=== PATIENT | male | born 1985 | race African-American/Black ===

== ENCOUNTER 2018-04-12 11:36 | Emergency (ER) | payer SELFPAY ==
[2018-04-12] MEDS ORDERED: METOCLOPRAMIDE HCL ORAL SOLN 10 MG/10 ML UDCUP PO ONE (12:46)
--- NOTE | 2018-04-12 12:49 | ER Document Report ---
ED Medical Screen (RME) - General Chief Complaint: Vomiting Stated Complaint: VOMITING Time Seen by Provider: 04/12/18 12:42 TRAVEL OUTSIDE OF THE [place] IN LAST 30 DAYS: No - HPI Patient complains to provider of: emesis Onset: Other - 33-year-old otherwise healthy gentleman the presents for eval of recurrent nausea and vomiting. Started with an episode after having eaten [employer] 3 nights prior, had 2 episodes of emesis that night, one episode last night , as a result he is decided to stop eating because he is concerned that he is going to throw up. He notes that before he gets sick he does have a low level headache. Denies any fevers or chills, abdominal pain, dysuria or diarrhea he does endorse constipation is notes that he has not had a bowel movement in the last 4-5 days. He is never had anything like this in the past, nothing is seem to make it any better nothing is seem to make it any worse. - Related Data Allergies/Adverse Reactions: No Known Allergies Allergy (Verified 04/12/18 12:41) Past Medical History - General Information source: Patient - Social History Chew tobacco use (# tins/day): No Frequency of alcohol use: None Drug Abuse: Marijuana Pulmonary Medical History: Reports: Hx Asthma Renal/ Medical History: Denies: Hx Peritoneal Dialysis - Immunizations Hx Diphtheria, Pertussis, Tetanus Vaccination: Yes Review of Systems - Review of Systems -: Yes All other systems reviewed and negative Physical Exam - Vital signs Vitals: Temp Pulse Resp BP Pulse Ox 98.6 F 67 18 117/69 97 04/12/18 11:53 04/12/18 11:53 04/12/18 11:53 04/12/18 11:53 04/12/18 11:53 - General General appearance: Appears well In distress: None - HEENT Head: Normocephalic Eyes: Normal Conjunctiva: Normal Cornea: Normal Extraocular movements intact: Yes Eyelashes: Normal Pupils: PERRL - Respiratory Respiratory status: No respiratory distress Chest status: Nontender Breath sounds: Normal Chest palpation: Normal - Cardiovascular Rhythm: Regular Heart sounds: Normal auscultation Murmur: No - Abdominal Inspection: Normal Distension: No distension Tenderness: Nontender Organomegaly: No organomegaly - Back Back: Normal - Extremities General upper extremity: Normal inspection, Nontender, Normal ROM, Normal strength General lower extremity: Normal inspection, Nontender, Normal ROM, Normal strength - Neurological Neuro grossly intact: Yes Cognition: Normal Orientation: AAOx4 [place] Coma Scale Eye Opening: Spontaneous [place] Coma Scale Verbal: Oriented [place] Coma Scale Motor: Obeys Commands [place] Coma Scale Total: 15 Speech: Normal Cranial nerves: Normal Motor strength normal: LUE, RUE, LLE, RLE - Psychological Associated symptoms: Normal affect Course - Re-evaluation Re-evalutation: 04/12/18 13:02 This is a well-appearing 33-year-old man with a benign abdominal examination. No secondary signs of infection at this time. He has been having recurrent episodes of vomiting and nausea. Denies any fevers or chills, does endorse a low-grade headache without any neck stiffness. We will plan for patient undergo treatment with Reglan symptom reassessment. Of note is that this patient's also been constipated. 04/12/18 14:29 Following administration of antiemetic patient was able to tolerate p.o., he has no abdominal pain, is well-appearing, his abdominal examination remained benign. We will plan for discharge with a bowel regimen as well as treatment of his nausea. Patient is in agreement with this at this time, we did cover important return precautions. He verbalized agreement. - Vital Signs Vital signs: Temp Pulse Resp BP Pulse Ox 98.6 F 67 18 117/69 97 04/12/18 11:53 04/12/18 11:53 04/12/18 11:53 04/12/18 11:53 04/12/18 11:53 Doctor's Discharge - Discharge Clinical Impression: Constipation Qualifiers: Constipation type: unspecified constipation type Qualified Code(s): K59.00 - Constipation, unspecified Vomiting Qualifiers: Vomiting type: unspecified Vomiting Intractability: non-intractable Nausea presence: with nausea Qualified Code(s): R11.2 - Nausea with vomiting, unspecified Disposition: HOME, SELF-CARE Instructions: Antinausea Medication ([facility]) Additional Instructions: Your seen today for your vomiting as well as constipation. You were given a prescription for medicine to help with your vomiting. Use the medication as needed for your vomiting. Also use the other medication prescribed to you for your constipation. Take it such that you are having one very soft bowel movement at least every day. Return for worsening fevers or chills, abdominal pain, cramping or other symptoms. Prescriptions: Metoclopramide HCl [Reglan 10 mg Tablet] 10 mg PO BID #40 tablet Polyethylene Glycol 3350 [Miralax Powder 17 gm/Packet] 17 gm PO BID #40 powd.pack Forms: Return to Work
[2018-04-12 14:30] VITALS: BP 115/72
== END 2018-04-12 14:33 | disposition home or self-care (01) ==
LOC: ER 11:36
DX: K59.00 Constipation, unspecified (principal); R11.2 Nausea with vomiting, unspecified
CPT/HCPCS: 99283

== ENCOUNTER 2019-04-10 18:48 | Observation (INO) | payer SELFPAY ==
[2019-04-10] MEDS ORDERED: IPRATROPIUM/ALBUTEROL 0.5-2.5 MG/3 ML AMPUL NEB ONE (19:50)
--- NOTE | 2019-04-10 19:52 | RADIOLOGY REPORT (SQ) ---
EXAM DESCRIPTION: CHEST SINGLE VIEW COMPLETED DATE/TIME: 04/10/2019 7:44 pm REASON FOR STUDY: SOB COMPARISON: None. EXAM PARAMETERS: NUMBER OF VIEWS: One view. TECHNIQUE: Single frontal radiographic view of the chest acquired. RADIATION DOSE: NA LIMITATIONS: None. FINDINGS: LUNGS AND PLEURA: No opacities, masses or pneumothorax. No pleural effusion. MEDIASTINUM AND HILAR STRUCTURES: No masses. Contour normal. HEART AND VASCULAR STRUCTURES: Heart normal in size. Normal vasculature. BONES: No acute findings. HARDWARE: None in the chest. OTHER: No other significant finding. IMPRESSION: NO ACUTE RADIOGRAPHIC FINDING IN THE CHEST. TECHNICAL DOCUMENTATION: JOB ID: [id number] [employer]- All Rights Reserved Reading location - IP/workstation name: [email or web address]
[2019-04-10 19:54] LABS: HEMATOCRIT 45.4 % (37.9-51.0); HEMOGLOBIN 15.2 g/dL (13.5-17.0); MEAN CORPUSCULAR HEMOGLOBIN 29.9 pg (27.0-33.4); MEAN CORPUSCULAR HGB CONC 33.6 g/dL (32.0-36.0); MEAN CORPUSCULAR VOLUME 89 fl (80-97); PLATELET COUNT 160 10^3/uL (150-450); RED BLOOD COUNT 5.09 10^6/uL (4.35-5.55); WHITE BLOOD COUNT 10.4 10^3/uL (4.0-10.5)
--- NOTE | 2019-04-10 19:54 | ER Document Report ---
ED General - General Chief Complaint: Shortness Of Breath Stated Complaint: SHORTNESS OF BREATH Time Seen by Provider: 04/10/19 19:25 Notes: 34-year-old male with a history of asthma presents emergency department complaining of worsening shortness of breath for the past 2 days. Patient denies any history of intubation, has been out of medications for approximately 2 years. States he has had a productive cough with rhinorrhea, sore throat and shortness of breath for the past 2 days. Denies any fevers. Patient was brought in by EMS, found to be hypoxic with a pulse ox of 89 to 90% on room air, they placed him on 3 L which brought him up to 95%, they gave him 2 albuterol breathing treatments, 2 g of mag sulfate and 125 mg of Solu-Medrol and brought him here. Patient states he is feeling a little bit better but not yet well. TRAVEL OUTSIDE OF THE [place] IN LAST 30 DAYS: No - Related Data Allergies/Adverse Reactions: No Known Allergies Allergy (Verified 04/12/18 12:41) Past Medical History - General Information source: Patient - Social History Smoking Status: Current Every Day Smoker Frequency of alcohol use: None Drug Abuse: None Family History: Reviewed & Not Pertinent Patient has suicidal ideation: No Patient has homicidal ideation: No Pulmonary Medical History: Reports: Hx Asthma Renal/ Medical History: Denies: Hx Peritoneal Dialysis - Immunizations Hx Diphtheria, Pertussis, Tetanus Vaccination: Yes Review of Systems - Review of Systems Constitutional: No symptoms reported EENT: See HPI Cardiovascular: No symptoms reported Respiratory: See HPI -: Yes All other systems reviewed and negative Physical Exam - Vital signs Vitals: Pulse Ox 91 L 04/10/19 19:05 Interpretation: Hypoxic - Notes Notes: GENERAL: Alert, interacts well. Appears short of breath. HEAD: Normocephalic, atraumatic EYES: Pupils equal, round and reactive to light, extraocular movements intact. ENT: Oral mucosa moist, tongue midline. Clear rhinorrhea, turbinate edema, tympanic membranes intact without any injection, some postnasal drip. NECK: Full range of motion, supple, trachea midline. LUNGS: Diffuse inspiratory rhonchi and expiratory wheezing, no rales or rhonchi, hypoxic on room air, 92% on 4 L, 91% while talking, speaks in 5-6 word sentences, tachypnea, appears short of breath. HEART: Regular rate and rhythm, no murmurs, gallops, rubs. ABDOMEN: Soft, nontender, nondistended, bowel sounds present in all 4 quadrants. EXTREMITIES: Moves all 4 extremities spontaneously, no edema, radial and dorsalis pedis pulses 2/4 bilaterally. No cyanosis. NEUROLOGICAL: Alert and oriented x3, normal speech. PSYCH: Normal mood, normal affect. SKIN: Warm, Dry, normal turgor, no rashes or lesions noted. Course - Re-evaluation Re-evalutation: 04/10/19 22:49 CBC unremarkable, CMP unremarkable only slightly elevated glucose at 126, serial blood gas was ordered and it appears to be accidentally a venous sample but there is no elevated CO2 on this ABG, chest x-ray shows no acute process, urinalysis shows small blood and trace ketones but no signs of infection. EKG is nonischemic. EMS gave the patient 2 breathing treatments, 125 of Solu-Medrol IV and 2 g of mag IV, on arrival he was still quite short of breath however after several more breathing treatments here the patient's status has significantly improved although he is still requiring 4 L via nasal cannula to maintain oxygen saturation at 92%. There is persistent wheezing in the lower lobes but no more wheezing in the upper lobes, patient looks more comfortable, is no longer using any accessory muscles of respiration and is no longer tachypneic. Patient has no risk factors for pulmonary embolism. Patient admits to [facility]. Discussed with Dr. Piedra who agrees to admit the patient to his service on the telemetry care unit. - Vital Signs Vital signs: Temp Pulse Resp BP Pulse Ox 18 109/70 94 04/10/19 22:01 04/10/19 22:00 04/10/19 22:01 - Laboratory Result Diagrams: 04/10/19 19:34 04/10/19 19:34 Laboratory results interpreted by me: 04/10/19 04/10/19 04/10/19 19:34 19:34 20:06 Seg Neuts % (Manual) 86 H Band Neutrophils % 1 L Lymphocytes % (Manual) 5 L Abs Neuts (Manual) 9.0 H ABG pO2 43.8 L ABG HCO3 27.1 H ABG Total CO2 28.4 H ABG O2 Saturation 80.7 L Glucose 126 H Urine Ketones Urine Blood Urine Urobilinogen 04/10/19 20:33 Seg Neuts % (Manual) Band Neutrophils % Lymphocytes % (Manual) Abs Neuts (Manual) ABG pO2 ABG HCO3 ABG Total CO2 ABG O2 Saturation Glucose Urine Ketones 20 H Urine Blood SMALL H Urine Urobilinogen 4.0 H - EKG Interpretation by Me Additional EKG results interpreted by me: 04/10/19 19:54 EKG shows sinus tachycardia at a rate of 100, right atrial enlargement, no ST segment elevations, trace depressions in lead III and aVF, no T wave inversions per my interpretation. Critical Care Note - Critical Care Note Total time excluding time spent on procedures (mins): 45 Discharge - Discharge Clinical Impression: Acute respiratory failure with hypoxia Acute asthma exacerbation Qualifiers: Asthma severity: moderate Asthma persistence: persistent Qualified Code(s): J45.41 - Moderate persistent asthma with (acute) exacerbation Condition: Fair Disposition: ADMITTED INPATIENT Admitting Provider: Tadeo (Hospitalist) Unit Admitted: Telemetry
[2019-04-10 20:09] LABS: ALBUMIN 4.3 g/dL (3.5-5.0); ALKALINE PHOSPHATASE 100 U/L (38-126); ANION GAP 9 (5-19); ASPARTATE AMINO TRANSFERASE 26 U/L (17-59); BILIRUBIN,DIRECT 0.2 mg/dL (0.0-0.4); BILIRUBIN,TOTAL 0.6 mg/dL (0.2-1.3); BLOOD UREA NITROGEN 9 mg/dL (7-20); CALCIUM 8.9 mg/dL (8.4-10.2); CARBON DIOXIDE 25 mmol/L (22-30); CHLORIDE 104 mmol/L (98-107); GLUCOSE 126 mg/dL (75-110); POTASSIUM 3.6 mmol/L (3.6-5.0); TOTAL PROTEIN 7.4 g/dL (6.3-8.2)
[2019-04-10 20:17] LABS: ABSOLUTE LYMPHOCYTES# (MANUAL) 0.5 10^3/uL (0.5-4.7); ABSOLUTE MONOCYTES # (MANUAL) 0.7 10^3/uL (0.1-1.4); ANISOCYTOSIS SLIGHT; BAND NEUTROPHILS % (MANUAL) 1 % (3-5); BASOPHILS % (MANUAL) 1 % (0-2); EOSINOPHILS % (MANUAL) 0 % (0-6); LYMPHOCYTES % (MANUAL) 5 % (13-45); MONOCYTES % (MANUAL) 7 % (3-13); PLATELET COMMENT ADEQUATE; SEGMENTED NEUTROPHILS % (MAN) 86 % (42-78); TOTAL CELLS COUNTED 100
[2019-04-10 20:20] LABS: ARTERIAL BLOOD BASE EXCESS 2.3 mmol/L; ARTERIAL BLOOD H2CO3 1.27 mmol/L (1.05-1.35); ARTERIAL BLOOD HCO3 27.1 mmol/L (20-24); ARTERIAL BLOOD O2 SATURATION 80.7 % (94-98); ARTERIAL BLOOD PCO2 42.3 mmHg (35-45); ARTERIAL BLOOD PH 7.42 (7.35-7.45); ARTERIAL BLOOD PO2 43.8 mmHg (80-100); ARTERIAL BLOOD TOTAL CO2 28.4 mmol/L (23-27)
[2019-04-10 20:23] LABS: ARTERIAL BLOOD FIO2 4L
[2019-04-10 21:00] LABS: APPEARANCE,URINE CLEAR; BILIRUBIN,URINE NEGATIVE (NEGATIVE); COLOR,URINE YELLOW; GLUCOSE, URINE NEGATIVE (NEGATIVE); KETONES,URINE 20 mg/dL (NEGATIVE); LEUKOCYTE ESTERASE,URINE NEGATIVE (NEGATIVE); NITRITE,URINE NEGATIVE (NEGATIVE); PROTEIN,URINE NEGATIVE (NEGATIVE)
[2019-04-10] MEDS ORDERED: ALBUTEROL SULFATE 0.083% NEB 2.5 MG/3 ML AMPUL NEB ONE (22:44)
[2019-04-10] MEDS ORDERED: IPRATROPIUM/ALBUTEROL 0.5-2.5 MG/3 ML AMPUL NEB PRN (22:51)
[2019-04-10] MEDS ORDERED: GUAIFENESIN SYRP 200 MG/10 ML UDC PO PRN (22:51)
[2019-04-10] MEDS ORDERED: ACETAMINOPHEN 325 MG TABLET PO PRN (22:51)
[2019-04-10] MEDS ORDERED: HYDRALAZINE HCL INJ/PF 20 MG/1 ML SDV IV PRN (22:51)
[2019-04-10] MEDS ORDERED: AZITHROMYCIN INJ 500 MG VIAL IV PRN (23:20)
[2019-04-10] MEDS: CHLORPHENIRAMINE MALEATE 4 MG TABLET PO SCH (23:58)
[2019-04-10] MEDS: FAMOTIDINE INJ/PF 20 MG/2 ML SDV IV SCH (23:58)
[2019-04-10] MEDS ORDERED: AZITHROMYCIN 500 MG in DEXTROSE 5%-WATER 250 ML IV ONE (23:59)
[2019-04-11] MEDS: FLUTICASONE NASAL SPRAY 50 MCG/SPRY 120 SPRAY/16 GM NASL SCH ×3 (00:04→21:06)
[2019-04-11] MEDS: IPRATROPIUM/ALBUTEROL 0.5-2.5 MG/3 ML AMPUL NEB SCH ×4 (02:20→20:53)
--- NOTE | 2019-04-11 05:06 | PDOC H&P ---
History of Present Illness Admission Date/PCP: 04/10/19 23:37 Patient complains of: Shortness of breath and nonproductive cough History of Present Illness: STEVEN ORTIZ is a 34 year old male with a past medical history of asthma and vape use. He presents with 3 days of itching ears, runny nose, postnasal drip, intermittently productive cough and shortness of breath prompting evaluation emergency room. He is found to have tachypnea with retractions and hypoxia with a pulse oximetry of 89%. He started on 2 L of nasal cannula oxygen, albuterol, Atrovent and referred to the hospitalist for admission. Patient denies regular medication use. He denies previous intubation. He admits feeling somewhat better following therapy. Past Medical History Pulmonary Medical History: Reports: Asthma Psychiatric Medical History: Reports: Tobacco Dependency Past Surgical History Past Surgical History: Reports: None Social History Information Source: Patient, [facility] Records Smoking Status: Current Every Day Smoker Frequency of Alcohol Use: None Drugs: None - Advance Directive Resuscitation Status: Full Code Family History Family History: COPD, Hypertension Parental Family History Reviewed: Yes Children Family History Reviewed: Yes Sibling(s) Family History Reviewed.: Yes Medication/Allergy Home Medications: Metoclopramide HCl [Reglan 10 mg Tablet] 10 mg PO BID #40 tablet 04/12/18 Polyethylene Glycol 3350 [Miralax Powder 17 gm/Packet] 17 gm PO BID #40 powd.pack 04/12/18 Allergies/Adverse Reactions: No Known Allergies Allergy (Verified 04/12/18 12:41) Review of Systems Constitutional: ABSENT: chills, fever(s), headache(s), weight gain, weight loss Eyes: ABSENT: visual disturbances Ears: ABSENT: hearing changes Cardiovascular: ABSENT: chest pain, dyspnea on exertion, edema, orthropnea, palpitations Respiratory: ABSENT: cough, hemoptysis Gastrointestinal: ABSENT: abdominal pain, constipation, diarrhea, hematemesis, hematochezia, nausea, vomiting Genitourinary: ABSENT: dysuria, hematuria Musculoskeletal: ABSENT: joint swelling Integumentary: ABSENT: rash, wounds Neurological: ABSENT: abnormal gait, abnormal speech, confusion, dizziness, focal weakness, syncope Psychiatric: ABSENT: anxiety, depression, homidical ideation, suicidal ideation Endocrine: ABSENT: cold intolerance, heat intolerance, polydipsia, polyuria Hematologic/Lymphatic: ABSENT: easy bleeding, easy bruising Physical Exam Vital Signs: Temp Pulse Resp BP Pulse Ox 98.7 F 81 24 H 112/72 97 04/11/19 00:07 04/11/19 02:20 04/11/19 04:01 04/11/19 04:00 04/11/19 04:01 Intake & Output 04/09/19 04/10/19 04/11/19 11:59 11:59 11:59 Intake Total 250 Balance 250 Weight 73.482 kg General appearance: PRESENT: cooperative, mild distress, well-developed, well- nourished. ABSENT: disheveled Head exam: PRESENT: atraumatic, normocephalic Eye exam: PRESENT: conjunctiva pink, EOMI, PERRLA. ABSENT: scleral icterus Ear exam: PRESENT: normal external ear exam Mouth exam: PRESENT: dry mucosa Neck exam: ABSENT: carotid bruit, JVD, lymphadenopathy, thyromegaly Respiratory exam: PRESENT: accessory muscle use, prolonged expiratory phas, retraction, rhonchi, tachypnea, wheezes Cardiovascular exam: PRESENT: RRR. ABSENT: diastolic murmur, rubs, systolic murmur Pulses: PRESENT: normal dorsalis pedis pul Vascular exam: PRESENT: normal capillary refill GI/Abdominal exam: PRESENT: normal bowel sounds, soft. ABSENT: distended, guarding, mass, organolmegaly, rebound, tenderness Rectal exam: PRESENT: deferred Extremities exam: PRESENT: full ROM. ABSENT: calf tenderness, clubbing, pedal edema Neurological exam: PRESENT: alert, awake, oriented to person, oriented to place, oriented to time, oriented to situation, CN II-XII grossly intact. ABSENT: motor sensory deficit Psychiatric exam: PRESENT: appropriate affect, normal mood. ABSENT: homicidal ideation, suicidal ideation Skin exam: PRESENT: dry, intact, warm. ABSENT: cyanosis, rash Results Laboratory Results: 04/10/19 19:34 04/10/19 19:34 04/10/19 04/10/19 04/10/19 19:34 19:34 20:06 WBC 10.4 RBC 5.09 Hgb 15.2 Hct 45.4 MCV 89 MCH 29.9 MCHC 33.6 RDW 14.0 Plt Count 160 Seg Neutrophils % Not Reportable Carbonic Acid 1.27 HCO3/H2CO3 Ratio 21:1 ABG pH 7.42 ABG pCO2 42.3 ABG pO2 43.8 L ABG HCO3 27.1 H ABG O2 Saturation 80.7 L ABG Base Excess 2.3 FiO2 4L Sodium 138.0 Potassium 3.6 Chloride 104 Carbon Dioxide 25 Anion Gap 9 BUN 9 Creatinine 1.00 Est GFR ( Amer) > 60 Glucose 126 H Calcium 8.9 Total Bilirubin 0.6 AST 26 Alkaline Phosphatase 100 Total Protein 7.4 Albumin 4.3 Urine Color Urine Appearance Urine pH Ur Specific [place] Urine Protein Urine Glucose (UA) Urine Ketones Urine Blood Urine Nitrite Ur Leukocyte Esterase Urine WBC (Auto) Urine RBC (Auto) 04/10/19 20:33 WBC RBC Hgb Hct MCV MCH MCHC RDW Plt Count Seg Neutrophils % Carbonic Acid HCO3/H2CO3 Ratio ABG pH ABG pCO2 ABG pO2 ABG HCO3 ABG O2 Saturation ABG Base Excess FiO2 Sodium Potassium Chloride Carbon Dioxide Anion Gap BUN Creatinine Est GFR ( Amer) Glucose Calcium Total Bilirubin AST Alkaline Phosphatase Total Protein Albumin Urine Color YELLOW Urine Appearance CLEAR Urine pH 6.0 Ur Specific [place] 1.020 Urine Protein NEGATIVE Urine Glucose (UA) NEGATIVE Urine Ketones 20 H Urine Blood SMALL H Urine Nitrite NEGATIVE Ur Leukocyte Esterase NEGATIVE Urine WBC (Auto) 0 Urine RBC (Auto) 4 Impressions: Chest X-Ray 04/10/19 18:54 IMPRESSION: NO ACUTE RADIOGRAPHIC FINDING IN THE CHEST. Assessment and Plan - Diagnosis (1) Allergic sinusitis Is this a current diagnosis for this admission?: Yes Plan: Flonase and chlorpheniramine (2) Bronchitis Is this a current diagnosis for this admission?: Yes Plan: Albuterol, Atrovent, prednisone and empiric antibiotics initiated. (3) Acute asthma exacerbation Qualifiers: Asthma severity: moderate Asthma persistence: persistent Qualified Code(s): J45.41 - Moderate persistent asthma with (acute) exacerbation Is this a current diagnosis for this admission?: Yes Plan: Multifactorial secondary to medication noncompliance, tobacco, acute sinusitis and bronchitis. Continue aggressive pulmonary toilet, prednisone, supplemental oxygen albuterol and Atrovent. - Time Time Spent with patient: 25-34 minutes - Inpatient Certification Medical Necessity: Need Close Monitoring Due to Risk of Patient Decompensation
[2019-04-11] MEDS: CHLORPHENIRAMINE MALEATE 4 MG TABLET PO SCH ×3 (06:10→17:38)
[2019-04-11] MEDS: HEPARIN SOD (PORCINE) 5,000 UNIT/ML 1 ML VIAL SUBCUT SCH ×3 (06:10→21:01)
[2019-04-11 07:34] LABS: HEMATOCRIT 43.2 % (37.9-51.0); HEMOGLOBIN 14.7 g/dL (13.5-17.0); MEAN CORPUSCULAR HEMOGLOBIN 30.1 pg (27.0-33.4); MEAN CORPUSCULAR HGB CONC 34.1 g/dL (32.0-36.0); MEAN CORPUSCULAR VOLUME 88 fl (80-97); PLATELET COUNT 154 10^3/uL (150-450); RED BLOOD COUNT 4.89 10^6/uL (4.35-5.55); RED CELL DISTRIBUTION WIDTH 14.1 % (11.5-14.0)
[2019-04-11 07:47] LABS: ANION GAP 10 (5-19); BLOOD UREA NITROGEN 12 mg/dL (7-20); CALCIUM 9.7 mg/dL (8.4-10.2); CARBON DIOXIDE 22 mmol/L (22-30); CHLORIDE 105 mmol/L (98-107); GLUCOSE 116 mg/dL (75-110); POTASSIUM 4.2 mmol/L (3.6-5.0)
--- NOTE | 2019-04-11 07:53 | EKG REPORT ---
SEVERITY:- ABNORMAL ECG - SINUS TACHYCARDIA BIATRIAL ABNORMALITIES BORDERLINE T ABNORMALITIES, DIFFUSE LEADS : Confirmed by: Juice Tovar MD 11-Apr-2019 07:52:33
[2019-04-11 08:19] LABS: ABSOLUTE LYMPHOCYTES# (MANUAL) 0.5 10^3/uL (0.5-4.7); ABSOLUTE MONOCYTES # (MANUAL) 0.3 10^3/uL (0.1-1.4); BASOPHILS % (MANUAL) 0 % (0-2); EOSINOPHILS % (MANUAL) 0 % (0-6); LYMPHOCYTES % (MANUAL) 5 % (13-45); MONOCYTES % (MANUAL) 3 % (3-13); SEGMENTED NEUTROPHILS % (MAN) 92 % (42-78); TOTAL CELLS COUNTED 100
[2019-04-11 08:21] LABS: ANISOCYTOSIS SLIGHT; PLATELET COMMENT ADEQUATE; TEAR DROP CELLS SLIGHT; TOXIC VACUOLATION PRESENT
--- NOTE | 2019-04-11 09:49 | PDOC PROGRESS REPORT ---
Subjective Progress Note for:: 04/11/19 Subjective:: No adverse events overnight. No new complaints. Vital signs been stable. He is at 96% SPO2 on 2 L of supplemental O2. He said he is feeling a lot better. He said he does smoke some but he does not use a vaporizer. He said he does not have rescue inhaler at home. Reason For Visit: ACUTE URI,ASTHMA EXACERBATION Physical Exam Vital Signs: Temp Pulse Resp BP Pulse Ox 98.7 F 81 15 117/62 95 04/11/19 06:00 04/11/19 02:20 04/11/19 08:01 04/11/19 08:00 04/11/19 08:01 Intake & Output 04/10/19 04/11/19 04/12/19 06:59 06:59 06:59 Intake Total 250 Balance 250 Weight 73.482 kg General appearance: PRESENT: no acute distress, cooperative, disheveled, thin Respiratory exam: PRESENT: decreased breath sounds, prolonged expiratory phas, symmetrical, unlabored. ABSENT: accessory muscle use, chest wall tenderness, crackles, rhonchi, wheezes Cardiovascular exam: PRESENT: RRR, +S1, +S2 Pulses: PRESENT: normal carotid pulses Vascular exam: PRESENT: normal capillary refill GI/Abdominal exam: PRESENT: normal bowel sounds, soft. ABSENT: distended, guarding, rebound, tenderness Extremities exam: ABSENT: clubbing, pedal edema Musculoskeletal exam: PRESENT: normal inspection. ABSENT: deformity Neurological exam: PRESENT: alert, awake, oriented to person, oriented to place, oriented to situation Psychiatric exam: PRESENT: appropriate affect, normal mood Skin exam: PRESENT: dry, warm Results Laboratory Results: 04/11/19 06:52 04/11/19 06:52 04/10/19 04/10/19 04/10/19 19:34 19:34 20:06 WBC 10.4 RBC 5.09 Hgb 15.2 Hct 45.4 MCV 89 MCH 29.9 MCHC 33.6 RDW 14.0 Plt Count 160 Seg Neutrophils % Not Reportable Carbonic Acid 1.27 HCO3/H2CO3 Ratio 21:1 ABG pH 7.42 ABG pCO2 42.3 ABG pO2 43.8 L ABG HCO3 27.1 H ABG O2 Saturation 80.7 L ABG Base Excess 2.3 FiO2 4L Sodium 138.0 Potassium 3.6 Chloride 104 Carbon Dioxide 25 Anion Gap 9 BUN 9 Creatinine 1.00 Est GFR ( Amer) > 60 Glucose 126 H Calcium 8.9 Total Bilirubin 0.6 AST 26 Alkaline Phosphatase 100 Total Protein 7.4 Albumin 4.3 Urine Color Urine Appearance Urine pH Ur Specific [place] Urine Protein Urine Glucose (UA) Urine Ketones Urine Blood Urine Nitrite Ur Leukocyte Esterase Urine WBC (Auto) Urine RBC (Auto) 04/10/19 04/11/19 04/11/19 20:33 06:52 06:52 WBC 9.0 RBC 4.89 Hgb 14.7 Hct 43.2 MCV 88 MCH 30.1 MCHC 34.1 RDW 14.1 H Plt Count 154 Seg Neutrophils % Not Reportable Carbonic Acid HCO3/H2CO3 Ratio ABG pH ABG pCO2 ABG pO2 ABG HCO3 ABG O2 Saturation ABG Base Excess FiO2 Sodium 137.2 Potassium 4.2 Chloride 105 Carbon Dioxide 22 Anion Gap 10 BUN 12 Creatinine 0.93 Est GFR ( Amer) > 60 Glucose 116 H Calcium 9.7 Total Bilirubin AST Alkaline Phosphatase Total Protein Albumin Urine Color YELLOW Urine Appearance CLEAR Urine pH 6.0 Ur Specific [place] 1.020 Urine Protein NEGATIVE Urine Glucose (UA) NEGATIVE Urine Ketones 20 H Urine Blood SMALL H Urine Nitrite NEGATIVE Ur Leukocyte Esterase NEGATIVE Urine WBC (Auto) 0 Urine RBC (Auto) 4 Impressions: Chest X-Ray 04/10/19 18:54 IMPRESSION: NO ACUTE RADIOGRAPHIC FINDING IN THE CHEST. Assessment and Plan - Diagnosis (1) Acute asthma exacerbation Qualifiers: Asthma severity: moderate Asthma persistence: persistent Qualified Cod e(s): J45.41 - Moderate persistent asthma with (acute) exacerbation Is this a current diagnosis for this admission?: Yes Plan: He still has very diminished breath sounds were going to put him on some prednisone and continue his nebulizer treatments. Make sure he has a rescue inhaler at discharge. (2) Acute respiratory failure with hypoxia Is this a current diagnosis for this admission?: Yes Plan: We will try him on room air to see how he does. I suspect he just need a little bit of oxygen support initially. - Time Time Spent with patient: 15-24 minutes
[2019-04-11] MEDS: PREDNISONE 20 MG TABLET PO SCH (09:56)
[2019-04-11] MEDS: FAMOTIDINE INJ/PF 20 MG/2 ML SDV IV SCH ×2 (09:56→21:06)
[2019-04-11] MEDS ORDERED: INFLUENZA QUAD (6MOS+) 2019-20 VAC 0.5 ML SYR IM ONE (16:30)
[2019-04-11] MEDS: GUAIFENESIN 600 MG TABLET.SA PO SCH (21:06)
[2019-04-11] MEDS ORDERED: AZITHROMYCIN 500 MG in DEXTROSE 5%-WATER 250 ML IV SCH (22:00)
[2019-04-12] MEDS: IPRATROPIUM/ALBUTEROL 0.5-2.5 MG/3 ML AMPUL NEB SCH ×2 (01:32→08:17)
[2019-04-12] MEDS: HEPARIN SOD (PORCINE) 5,000 UNIT/ML 1 ML VIAL SUBCUT SCH (06:39)
[2019-04-12] MEDS: PREDNISONE 20 MG TABLET PO SCH (09:13)
[2019-04-12] MEDS: FLUTICASONE NASAL SPRAY 50 MCG/SPRY 120 SPRAY/16 GM NASL SCH (09:13)
[2019-04-12] MEDS: FAMOTIDINE INJ/PF 20 MG/2 ML SDV IV SCH (09:13)
[2019-04-12] MEDS: GUAIFENESIN 600 MG TABLET.SA PO SCH (09:13)
[2019-04-12 10:00] VITALS: BP 117/68
--- NOTE | 2019-04-12 16:32 | PDOC DISCHARGE SUMMARY ---
Impression - Admit/DC Date/PCP Admission Date/Primary Care Provider: 04/10/19 23:37 Discharge Date: 04/12/19 - Discharge Diagnosis (1) Acute asthma exacerbation Is this a current diagnosis for this admission?: Yes (2) Acute respiratory failure with hypoxia Is this a current diagnosis for this admission?: Yes - Additional Information Resuscitation Status: Full Code Discharge Diet: Regular Discharge Activity: Activity As Tolerated Referrals: [facility] [Outside] - 04/23/19 3:30 pm (MAILED APPT, NO ANSWER ON PHONE) Prescriptions: Prednisone [Deltasone 20 mg Tablet] 40 mg PO DAILY #10 tablet Albuterol Sulfate [Proair Hfa Inhalation Aerosol 8.5 gm Mdi] 1 puff IH Q4HP PRN #1 mdi PRN Reason: Home Medications: Albuterol Sulfate [Proair Hfa Inhalation Aerosol 8.5 gm Mdi] 1 puff IH Q4HP PRN #1 mdi 04/12/19 Prednisone [Deltasone 20 mg Tablet] 40 mg PO DAILY #10 tablet 04/12/19 History of Present Illiness History of Present Illness: STEVEN ORTIZ is a 34 year old male with a past medical history of asthma and vape use. He presents with 3 days of itching ears, runny nose, postnasal drip, intermittently productive cough and shortness of breath prompting evaluation emergency room. He is found to have tachypnea with retractions and hypoxia with a pulse oximetry of 89%. He started on 2 L of nasal cannula oxygen, albuterol, Atrovent and referred to the hospitalist for admission. Patient denies regular medication use. He denies previous intubation. He admits feeling somewhat better following therapy. Hospital Course Hospital Course: He responded very well to treatment. He was ambulating around the room independently. He was not on oxygen. He will complete a short burst of prednisone at home. Also send him a prescription for albuterol inhaler. He will follow-up with the [facility]. His labs and examination were reassuring and he was discharged in good condition. Physical Exam Vital Signs: Temp Pulse Resp BP Pulse Ox 97.4 F 73 15 117/68 94 04/12/19 11:50 04/12/19 11:50 04/12/19 11:50 04/12/19 11:50 04/12/19 11:50 Intake & Output 04/11/19 04/12/19 04/13/19 06:59 06:59 06:59 Intake Total 250 651 250 Balance 250 651 250 Weight 73.482 kg 64.8 kg 64.8 kg General appearance: PRESENT: no acute distress, cooperative, disheveled, thin Respiratory exam: PRESENT: decreased breath sounds, prolonged expiratory phas, symmetrical, unlabored. ABSENT: accessory muscle use, chest wall tenderness, crackles, rhonchi, wheezes Cardiovascular exam: PRESENT: RRR, +S1, +S2 Pulses: PRESENT: normal carotid pulses Vascular exam: PRESENT: normal capillary refill GI/Abdominal exam: PRESENT: normal bowel sounds, soft. ABSENT: distended, guarding, rebound, tenderness Extremities exam: ABSENT: clubbing, pedal edema Musculoskeletal exam: PRESENT: normal inspection. ABSENT: deformity Neurological exam: PRESENT: alert, awake, oriented to person, oriented to place, oriented to situation Psychiatric exam: PRESENT: appropriate affect, normal mood Skin exam: PRESENT: dry, warm Results Laboratory Results: WBC 9.0 10^3/uL (4.0-10.5) 04/11/19 06:52 RBC 4.89 10^6/uL (4.35-5.55) 04/11/19 06:52 Hgb 14.7 g/dL (13.5-17.0) 04/11/19 06:52 Hct 43.2 % (37.9-51.0) 04/11/19 06:52 MCV 88 fl (80-97) 04/11/19 06:52 MCH 30.1 pg (27.0-33.4) 04/11/19 06:52 MCHC 34.1 g/dL (32.0-36.0) 04/11/19 06:52 RDW 14.1 % (11.5-14.0) H 04/11/19 06:52 Plt Count 154 10^3/uL (150-450) 04/11/19 06:52 Lymph % (Auto) Not Reportable 04/11/19 06:52 [place] % (Auto) Not Reportable 04/11/19 06:52 Eos % (Auto) Not Reportable 04/11/19 06:52 Baso % (Auto) Not Reportable 04/11/19 06:52 Absolute Neuts (auto) Not Reportable 04/11/19 06:52 Absolute Lymphs (auto) Not Reportable 04/11/19 06:52 Absolute Monos (auto) Not Reportable 04/11/19 06:52 Absolute Eos (auto) Not Reportable 04/11/19 06:52 Absolute Basos (auto) Not Reportable 04/11/19 06:52 Total Counted 100 04/11/19 06:52 Seg Neutrophils % Not Reportable 04/11/19 06:52 Seg Neuts % (Manual) 92 % (42-78) H 04/11/19 06:52 Band Neutrophils % 1 % (3-5) L 04/10/19 19:34 Lymphocytes % (Manual) 5 % (13-45) L 04/11/19 06:52 Monocytes % (Manual) 3 % (3-13) 04/11/19 06:52 Eosinophils % (Manual) 0 % (0-6) 04/11/19 06:52 Basophils % (Manual) 0 % (0-2) 04/11/19 06:52 Abs Neuts (Manual) 8.3 10^3/uL (1.7-8.2) H 04/11/19 06:52 Abs Lymphs (Manual) 0.5 10^3/uL (0.5-4.7) 04/11/19 06:52 Abs Monocytes (Manual) 0.3 10^3/uL (0.1-1.4) 04/11/19 06:52 Absolute Eos (Manual) 0.0 10^3/uL (0.0-0.6) 04/11/19 06:52 Abs Basophils (Manual) 0.0 10^3/uL (0.0-0.2) 04/11/19 06:52 Toxic Vacuolation PRESENT 04/11/19 06:52 Platelet Comment ADEQUATE 04/11/19 06:52 Anisocytosis SLIGHT 04/11/19 06:52 Tear Drop Cells SLIGHT 04/11/19 06:52 Carbonic Acid 1.27 mmol/L (1.05-1.35) 04/10/19 20:06 HCO3/H2CO3 Ratio 21:1 04/10/19 20:06 ABG pH 7.42 (7.35-7.45) 04/10/19 20:06 ABG pCO2 42.3 mmHg (35-45) 04/10/19 20:06 ABG pO2 43.8 mmHg (80-100) L 04/10/19 20:06 ABG HCO3 27.1 mmol/L (20-24) H 04/10/19 20:06 ABG Total CO2 28.4 mmol/L (23-27) H 04/10/19 20:06 ABG O2 Saturation 80.7 % (94-98) L 04/10/19 20:06 ABG Base Excess 2.3 mmol/L 04/10/19 20:06 FiO2 4L 04/10/19 20:06 Sodium 137.2 mmol/L (137-145) 04/11/19 06:52 Potassium 4.2 mmol/L (3.6-5.0) 04/11/19 06:52 Chloride 105 mmol/L (98-107) 04/11/19 06:52 Carbon Dioxide 22 mmol/L (22-30) 04/11/19 06:52 Anion Gap 10 (5-19) 04/11/19 06:52 BUN 12 mg/dL (7-20) 04/11/19 06:52 Creatinine 0.93 mg/dL (0.52-1.25) 04/11/19 06:52 Est GFR ( Amer) > 60 (>60) 04/11/19 06:52 Est GFR (MDRD) Non-Af > 60 (>60) 04/11/19 06:52 Glucose 116 mg/dL (75-110) H 04/11/19 06:52 Calcium 9.7 mg/dL (8.4-10.2) 04/11/19 06:52 Total Bilirubin 0.6 mg/dL (0.2-1.3) 04/10/19 19:34 Direct Bilirubin 0.2 mg/dL (0.0-0.4) 04/10/19 19:34 Neonat Total Bilirubin Not Reportable 04/10/19 19:34 Neonat Direct Bilirubin Not Reportable 04/10/19 19:34 Neonat Indirect Bili Not Reportable 04/10/19 19:34 AST 26 U/L (17-59) 04/10/19 19:34 ALT 20 U/L (<50) 04/10/19 19:34 Alkaline Phosphatase 100 U/L (38-126) 04/10/19 19:34 Total Protein 7.4 g/dL (6.3-8.2) 04/10/19 19:34 Albumin 4.3 g/dL (3.5-5.0) 04/10/19 19:34 Urine Color YELLOW 04/10/19 20:33 Urine Appearance CLEAR 04/10/19 20:33 Urine pH 6.0 (5.0-9.0) 04/10/19 20:33 Ur Specific [place] 1.020 04/10/19 20:33 Urine Protein NEGATIVE mg/dL (NEGATIVE) 04/10/19 20:33 Urine Glucose (UA) NEGATIVE mg/dL (NEGATIVE) 04/10/19 20:33 Urine Ketones 20 mg/dL (NEGATIVE) H 04/10/19 20:33 Urine Blood SMALL (NEGATIVE) H 04/10/19 20:33 Urine Nitrite NEGATIVE (NEGATIVE) 04/10/19 20:33 Urine Bilirubin NEGATIVE (NEGATIVE) 04/10/19 20:33 Urine Urobilinogen 4.0 mg/dL (<2.0) H 04/10/19 20:33 Ur Leukocyte Esterase NEGATIVE (NEGATIVE) 04/10/19 20:33 Urine WBC (Auto) 0 /HPF 04/10/19 20:33 Urine RBC (Auto) 4 /HPF 04/10/19 20:33 Urine Mucus (Auto) FEW /LPF 04/10/19 20:33 Urine Ascorbic Acid NEGATIVE (NEGATIVE) 04/10/19 20:33 Impressions: Chest X-Ray 04/10/19 18:54 IMPRESSION: NO ACUTE RADIOGRAPHIC FINDING IN THE CHEST. Plan Time Spent: Greater than 30 Minutes Stroke Is this a Stroke Patient?: No Acute Heart Failure - Is this a Heart Failure Patient?: No
== END 2019-04-12 12:10 | disposition home or self-care (01) ==
LOC: ER 18:48 → EH 23:37 → INTOOBSV 23:37 → 4N 04-11 14:50
PROVIDERS: ADMIT Internal Medicine; ATTEND Internal Medicine
DX: J45.41 Moderate persistent asthma with (acute) exacerbation (principal); J06.9 Acute upper respiratory infection, unspecified; J96.01 Acute respiratory failure with hypoxia; F17.290 Nicotine dependence, other tobacco product, uncomplicated; J30.9 Allergic rhinitis, unspecified; J40 Bronchitis, not specified as acute or chronic; Z23 Encounter for immunization; Z91.14 Patient's other noncompliance with medication regimen; Z83.6 Family history of other diseases of the respiratory system; Z82.49 Family history of ischemic heart disease and other diseases of the circulatory system
CPT/HCPCS: 93005; 99285; 96365; 36415 ×2; 82803; 85025 ×2; 80048; 80053; 81001; 71045; 90686; 94799; 93010; 94667; 94668; 94640 ×2; G0378 ×4; J1644; J7512 ×2; J3490; J7060; J0456; S0028 ×3; J7620 ×3